=== PATIENT | female | born 1990 | race Hispanic/Latino ===

== ENCOUNTER 2018-05-25 11:13 | Emergency (ER) | payer SELFPAY ==
[~2018-05-25] VITALS: Ht 160 cm; Wt 44.6 kg
[2018-05-25 11:15] VITALS: BP 110/74
== END 2018-05-25 12:38 | disposition left against medical advice (07) ==
LOC: EME 11:13
DX: N92.6 Irregular menstruation, unspecified (principal); Z53.21 Procedure and treatment not carried out due to patient leaving prior to being seen by health care provider
CPT/HCPCS: 81003; 84702; 85027